=== PATIENT | male | born 1940 | race Caucasian/White ===

== ENCOUNTER 2017-02-09 06:38 | Day surgery (SDC) | payer MEDICARE, OTHER ==
--- NOTE | ~2017-02-09 | EGD ---
EGD REPORT [facility] [address] [address] NAME: EPI MAZARIEGOS JR : [birth year] STATUS : REG [facility]#: [id number] AGE: 76 ADM/REG DATE : 02/09/17 MR#: [id number] REPORT SERV DATE: 02/09/17 DICTATED BY: DATE: REPORT STATUS : Draft TRANSCRIBED BY: [employer] DATE: 02/09/17 [facility] Patient Name: Epi Mazariegos Date of : 1940 Attending MD: VALENTIN GARCIA MD Procedure Date No Time: 02/09/2017 Procedure: Colonoscopy Indications: High risk colon CA surveillance: Personal history multiple (3 or more) adenomas Referring MD: BOUBACAR SCHAFFER Medicines: Monitored Anesthesia Care Complications: No immediate complications. Procedure: Pre-Anesthesia Assessment: - ASA Grade Assessment: II - A patient with mild systemic disease. After I obtained informed consent, the scope was passed under direct vision. Throughout the procedure, the patient's blood pressure, pulse, and oxygen saturations were monitored continuously. The PCF [id number] was introduced through the anus and advanced to the cecum, identified by appendiceal orifice and ileocecal valve. The colonoscopy was performed without difficulty. The patient tolerated the procedure well. The quality of the bowel preparation was good. Findings: The perianal and digital rectal examinations were normal. Multiple small and large-mouthed diverticula were found in the sigmoid colon. Three sessile polyps were found at the splenic flexure. The polyps were small in size. These polyps were removed with a cold snare. Resection and retrieval were complete. No other significant abnormalities were identified in a careful examination of the remainder of the colon. There is no endoscopic evidence of inflammation, mass, ulcerations or angioectasia in the entire colon. No additional abnormalities were found on retroflexion. Impression: - Diverticulosis in the sigmoid colon. - Three small polyps at the splenic flexure. Resected and retrieved. Recommendation: - Patient has a contact number available for emergencies. The signs and symptoms of potential delayed complications were discussed with the patient. Return to EGD REPORT [address] [address] NAME: EPI MAZARIEGOS JR : [birth year] STATUS : REG [facility]#: [id number] AGE: 76 ADM/REG DATE : 02/09/17 MR#: [id number] REPORT SERV DATE: 02/09/17 DICTATED BY: DATE: REPORT STATUS : Draft TRANSCRIBED BY: [employer] DATE: 02/09/17 normal activities tomorrow. Written discharge instructions were provided to the patient. - High fiber diet. - Discharge patient to home. - Continue present medications. - Await pathology results. - Repeat colonoscopy in 3 years for surveillance based on pathology results. Procedure Code(s): --- Professional --- 53744, Colonoscopy, flexible, proximal to splenic flexure; with removal of tumor(s), polyp(s), or other lesion(s) by snare technique Diagnosis Code(s): --- Professional --- K57.30, Diverticulosis of large intestine without perforation or abscess without bleeding D12.3, Benign neoplasm of transverse colon Z86.010, Personal history of colonic polyps CPT copyright 2013 [employer]. All rights reserved. The codes documented in this report are preliminary and upon sourcing engineer review may be revised to meet current compliance requirements. VAELNTIN GARCIA MD 02/09/2017 8:29 AM This report has been signed electronically. Number of Addenda: 0 Note Initiated On: 02/09/2017 7:45 AM Scope Withdrawal Time 0 hours 11 minutes 13 seconds [id number] [place] [address] [id number]
--- NOTE | ~2017-02-09 | EGD ---
EGD REPORT [facility] [address] [address] NAME: EPI MAZARIEGOS JR : 44 STATUS : REG [facility]#: [id number] AGE: 76 ADM/REG DATE : 02/09/17 MR#: [id number] REPORT SERV DATE: 02/09/17 DICTATED BY: DATE: REPORT STATUS : Draft TRANSCRIBED BY: [employer] DATE: 02/09/17 Endoscopy Center Patient Name: Epi Mazariegos Date of : 1940 Attending MD: VALENTIN GARCIA MD Procedure Date No Time: 02/09/2017 Procedure: Upper GI endoscopy Indications: Dysphagia Referring MD: BOUBACAR SCHAFFER Medicines: Monitored Anesthesia Care Complications: No immediate complications. Procedure: Pre-Anesthesia Assessment: - ASA Grade Assessment: II - A patient with mild systemic disease. After obtaining informed consent, the endoscope was passed under direct vision. Throughout the procedure, the patient's blood pressure, pulse, and oxygen saturations were monitored continuously. The GIF H190 [id number] was introduced through the mouth, and advanced to the third part of duodenum. The upper GI endoscopy was accomplished without difficulty. The patient tolerated the procedure well. Findings: The examined esophagus was significantly tortuous. Evidence of a Cedric fundoplication was found at the gastroesophageal junction. The wrap appeared loose and has slipped. This was traversed. No other significant abnormalities were identified in a careful examination of the esophagus. There is no endoscopic evidence of Lr's esophagus, areas of erosion, ulcerations or varices in the entire esophagus. A TTS dilator was passed through the scope. Dilation with an 18-19-20 mm balloon (to a maximum balloon size of 20 mm) dilator was performed at the gastroesophageal junction. The entire examined stomach was normal. There is no endoscopic evidence of mucosal abnormalities, ulceration, varices or stenosis in the entire examined stomach. The examined duodenum was normal. There is no endoscopic evidence of mucosal abnormalities, stenosis or ulceration in the entire examined duodenum. The cardia and gastric fundus were normal on retroflexion. Impression: - Tortuous esophagus. - A Cedric fundoplication was found. The wrap appears loose and has slipped. EGD REPORT [address] [address] NAME: EPI MAZARIEGOS JR : 44 STATUS : REG [facility] PAT#: [id number] AGE: 76 ADM/REG DATE : 02/09/17 MR#: [id number] REPORT SERV DATE: 02/09/17 DICTATED BY: DATE: REPORT STATUS : Draft TRANSCRIBED BY: [employer] DATE: 02/09/17 - Normal stomach. - Normal examined duodenum. - Dilation attempted at the gastroesophageal junction. Successful. Recommendation: - Patient has a contact number available for emergencies. The signs and symptoms of potential delayed complications were discussed with the patient. Return to normal activities tomorrow. Written discharge instructions were provided to the patient. - Regular diet. - Discharge patient to home. - Continue present medications. Procedure Code(s): --- Professional --- 07461, Esophagogastroduodenoscopy, flexible, transoral; with transendoscopic balloon dilation of esophagus (less than 30 mm diameter) Diagnosis Code(s): --- Professional --- Q39.9, Congenital malformation of esophagus, unspecified Z98.89, Other specified postprocedural states R13.10, Dysphagia, unspecified CPT copyright 2013 [employer]. All rights reserved. The codes documented in this report are preliminary and upon ad copy writer review may be revised to meet current compliance requirements. VALENTIN GARCIA MD 02/09/2017 8:10 AM This report has been signed electronically. Number of Addenda: 0 Note Initiated On: 02/09/2017 7:50 AM Scope Withdrawal Time 0 hours 0 minutes 0 seconds [id number] [place] [id number]
[~2017-02-09 06:38] MED LIST: ACEBUTOLOL; ACEBUTOLOL PO; AMIT25 PO; ASAB PO; BENTYL10 PO; CO Q-10100 MG PO; COQ10100 MG OR; CRESTOR10 PO; CRESTOR40 MG PO; FISH-EPA1000 MG PO; FLECAINIDE100 MG PO; FOLIC PO; LIPITOR10 PO; MTX2.5 PO; MULTIPLE VIT PO; NIACIN 500 PO; NORV10 PO; PRILO PO; PRINZIDE1 TAB PO; TAMBO50 PO; VITAMIN D31000 UNIT PO; VITC500 PO; VITE PO; ZANTAC150 MG PO
== END 2017-02-09 23:59 | disposition home or self-care (01) ==
LOC: DMU 06:38
PROVIDERS: Internal Medicine Gastroenterology
PROC: 0DBL8ZX Excision of Transverse Colon, Via Natural or Artificial Opening Endoscopic, Diagnostic (ICD-10-PCS; principal; 2017-02-09 08:30)
PROC: 0D748ZZ Dilation of Esophagogastric Junction, Via Natural or Artificial Opening Endoscopic (ICD-10-PCS; 2017-02-09 08:30)
DX: Z12.11 Encounter for screening for malignant neoplasm of colon (principal); D12.3 Benign neoplasm of transverse colon; K57.30 Diverticulosis of large intestine without perforation or abscess without bleeding; Q39.9 Congenital malformation of esophagus, unspecified; I10 Essential (primary) hypertension; Z86.010 Personal history of colon polyps; Z98.890 Other specified postprocedural states; Z88.0 Allergy status to penicillin; Z79.899 Other long term (current) drug therapy; Z87.442 Personal history of urinary calculi; Z90.49 Acquired absence of other specified parts of digestive tract
CPT/HCPCS: 88305